=== PATIENT | male | born 2000 | race Caucasian/White ===

== ENCOUNTER 2021-02-06 21:25 | Emergency (ER) | payer OTHER ==
[2021-02-06] MEDS ORDERED: RX-AMOX/CLAV. (AUGMENTIN) 500MG TAB PPK#2 PO STA (21:57)
[2021-02-06] MEDS ORDERED: IBUPROFEN 800 MG (MOTRIN) TAB PO STA (21:57)
[2021-02-06] MEDS ORDERED: TETANUS,DIPTH,PERTUSS P/F (BOOSTRIX) 0.5 ML VIAL IM ONE (22:00)
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
[2021-02-06] MEDS ORDERED: AMOX-358 PO (22:06)
[2021-02-06 22:17] VITALS: BP 148/89
== END 2021-02-06 22:17 | disposition home or self-care (01) ==
LOC: ER 21:25
DX: S61.452A Open bite of left hand, initial encounter (principal); M25.512 Pain in left shoulder; Z23 Encounter for immunization; W50.3XXA Accidental bite by another person, initial encounter
CPT/HCPCS: 90715; 99284